=== PATIENT | female | born 1985 | race African-American/Black ===

== ENCOUNTER 2017-02-25 17:45 | Emergency (ER) | payer SELFPAY ==
[~2017-02-25] VITALS: Ht 157.5 cm; Wt 63.7 kg
[2017-02-25 17:59] VITALS: BP 106/66
--- NOTE | 2017-02-25 19:23 | NUR ---
PT. AMBULATES TO ER BED 12
[2017-02-25] MEDS ORDERED: HYDROcodone/APAP 5/325 MG 1 TAB TAB PO ONE (19:45)
--- NOTE | 2017-02-25 19:46 | NUR ---
32Y/F PT. PRESENTS TO ED WITH C/O LT. WRIST PAIN X 1 DAY. PT. ROLLED OUT OF BED, LT. WRIST PAIN. NO MEDICAL HX. AAO X4, AMBULATORY WITH STEDAY GAIT. NO APPARENT INJURY. C/O LT. WRIST PAIN 11/22. VSS, ER UPHOLSTERY BUNDLER MADE AWARE OF PT. STATUS.
--- NOTE | 2017-02-25 20:40 | NUR ---
Patient discharged with v/s stable. Written and verbal after care instructions given and explained. Patient alert, oriented and verbalized understanding of instructions. Ambulatory with steady gait. All questions addressed prior to discharge. ID band removed. Patient advised to follow up with PMD. Rx of MOTRIN 800 MG, NORCO 5/325 MG given. Patient educated on indication of medication including possible reaction and side effects. Opportunity to ask questions provided and answered.
[2017-02-25 20:59] VITALS: BP 101/63
== END 2017-02-25 20:40 | disposition home or self-care (01) ==
LOC: MED 17:45
DX: S69.92XA Unspecified injury of left wrist, hand and finger(s), initial encounter (principal); W06.XXXA Fall from bed, initial encounter; Y93.89 Activity, other specified; Y92.89 Other specified places as the place of occurrence of the external cause; Y99.8 Other external cause status
CPT/HCPCS: 73110; 99284

== ENCOUNTER 2017-04-04 14:24 | Emergency (ER) | payer SELFPAY ==
[~2017-04-04] VITALS: Ht 157.5 cm; Wt 63.2 kg
[2017-04-04 14:29] VITALS: BP 109/76
--- NOTE | 2017-04-04 14:33 | NUR ---
PT AA&OX4, STEADY GAIT; VSS; PT PLACED IN LOBBY AWAITING OPEN BED.
--- NOTE | 2017-04-04 16:18 | NUR ---
PATIENT LEFT WITHOUT BEING SEEN BY DR. BELL. NO FURTHER CARE PROVIDED FOR PATIENT.
== END 2017-04-04 16:18 | disposition left against medical advice (07) ==
LOC: MED 14:24
DX: Z53.21 Procedure and treatment not carried out due to patient leaving prior to being seen by health care provider (principal)

== ENCOUNTER 2018-06-08 12:01 | Emergency (ER) | payer MEDICAID ==
[~2018-06-08] VITALS: Ht 157.5 cm; Wt 76.8 kg
[2018-06-08 12:10] VITALS: BP 108/64
--- NOTE | 2018-06-08 13:37 | NUR ---
PT SITTING IN LOBBY W/ VSS. NO NEW COMPLAINTS AT THIS TIME
--- NOTE | 2018-06-08 14:38 | NUR ---
Kary martinez in EDM - 06/08/18 at 1527 by [email or web address] PT SPOKE WITH ER ADMITTING STAFF AT THIS TIME. LWBS. ATTEMPTED TO TALK TO PT AGAIN AT THIS TIME BUT LEFT UNIT.
--- NOTE | 2018-06-08 14:54 | NUR ---
Note michelle in EDM - 06/08/18 at 1504 by [email or web address] 33 YO F BIB SELF W/ C/O PRODUCTIVE COUG X 4-5 DAYS. PT STATES THAT SHE NOW HAS CHEST WALL PAIN FROM COUGHING. LUNGS BL CLEAR. RR EVEN AND UNLABORED. NO MEDICATIONS TAKEN TODAY, STATES ROBITUSSIN AND TYLENOL HAVE NOT BEEN EFFECTIVE IN RELIEVING SYMTPOMS. HX DENIES RX DENIES
--- NOTE | 2018-06-08 14:54 | NUR ---
PT AMBULATED TO BED 9
--- NOTE | 2018-06-08 15:17 | NUR ---
DR. DOHERTY AT BEDSIDE EVALUATING.
[2018-06-08] MEDS ORDERED: cefTRIAXone 1,000 MG in LIDOCAINE 1% ***ER ONLY *** 2.1 ML IM ONE (15:25)
[2018-06-08] MEDS ORDERED: KETOROLAC 60 MG/2 ML VIAL IM ONE (15:25)
[2018-06-08] MEDS ORDERED: DEXAMETHASONE 10 MG/ML VIAL IM ONE (15:25)
[2018-06-08] MEDS ORDERED: ALBUTEROL SULFATE/IPRATROPIU 3 ML SOL IH ONE (15:25)
[2018-06-08] MEDS ORDERED: hydrOXYzine HCL 25 MG TAB PO ONE (15:25)
[2018-06-08] MEDS ORDERED: cefTRIAXone 1,000 MG VIAL ONE (15:44)
[2018-06-08] MEDS ORDERED: LIDOCAINE MPF 1% 5mL VIAL ONE (15:47)
[2018-06-08 16:28] LABS: APPEARANCE,URINE CLEAR (CLEAR); BILIRUBIN,URINE NEGATIVE (NEGATIVE); BLOOD, URINE NEGATIVE (NEGATIVE); COLOR,URINE YELLOW (YELLOW); LEUKOCYTE ESTERASE ,URINE NEGATIVE (NEGATIVE); NITRITE, URINE NEGATIVE (NEGATIVE); PH,URINE 6.5 (5.0-9.0); UGLUCOSE NEGATIVE (NEGATIVE)
--- NOTE | 2018-06-08 16:44 | NUR ---
MOTHER RESTING IN BED. NO S/S OF DISTRESS NOTED. SEEN SMILING AND LAUGHING WITH CHILD
[2018-06-08 16:59] LABS: BARBITURATE, URINE NEG. ng/ml (NEG <=200); BENZODIAZEPINE, URINE NEG. ng/mL (NEG <=200); CANNABINOID, URINE POS. ng/mL (NEG <=50); COCAINE, URINE NEG. ng/mL (NEG <=300); OPIATE, URINE NEG. ng/mL (NEG <=2000); PHENCYCLIDINE SCREEN,URINE NEG. ng/mL (NEG <=25)
[2018-06-08 17:18] VITALS: BP 110/69
--- NOTE | 2018-06-08 17:19 | NUR ---
Patient discharged with v/s stable. Written and verbal after care instructions given and explained. Patient alert, oriented and verbalized understanding of instructions. Ambulatory with steady gait. All questions addressed prior to discharge. ID band removed. Patient advised to follow up with PMD. Rx of AZITHROMYCIN, PROMETHAZINE, ALBUTEROL given. Patient educated on indication of medication including possible reaction and side effects. Opportunity to ask questions provided and answered.
== END 2018-06-08 17:19 | disposition home or self-care (01) ==
LOC: MED 12:01
DX: J44.1 Chronic obstructive pulmonary disease with (acute) exacerbation (principal); F17.210 Nicotine dependence, cigarettes, uncomplicated; Z71.6 Tobacco abuse counseling
CPT/HCPCS: 36415; 71045; 80305; 81003; 81025; 87804; 93005; 94640; 96372; 99284; J0696; J1100; J1885; J2001; J7620; Q0092

== ENCOUNTER 2019-04-25 23:08 | Emergency (ER) | payer MEDICAID ==
[~2019-04-25] VITALS: Ht 157.5 cm; Wt 67.2 kg
[2019-04-25 23:10] VITALS: BP 100/62
--- NOTE | 2019-04-25 23:10 | NUR ---
TO BED # 10 AMBULATORY
--- NOTE | 2019-04-25 23:10 | NUR ---
34 y/o female presents to ED with C/O n/v/d, gen body aches, head ache, and fever x12 hrs. Took ibuprofen at home for pain and fever with relief. Pt states difficuly keeping fluids down. Afebrile with VSS. ER MD aware. Positioned in bed for comfort. Continue to monitor.
--- NOTE | 2019-04-26 00:04 | NUR ---
DR. SPEEDY BHATIA AT BEDSIDE.
[2019-04-26] MEDS ORDERED: KETOROLAC 60 MG/2 ML VIAL IM ONE (00:10)
--- NOTE | 2019-04-26 00:16 | NUR ---
MEDICATED WITH 60 MG IM TORADOL FOR 8/10 BODY ACHES. WILL REASSESS.
[2019-04-26 01:05] VITALS: BP 113/77
--- NOTE | 2019-04-26 01:05 | NUR ---
Patient discharged with v/s stable. States 2/10 tollerable pain. Written and verbal after care instructions given and explained. Patient alert, oriented and verbalized understanding of instructions. Ambulatory with steady gait. All questions addressed prior to discharge. ID band removed. Patient advised to follow up with PMD and when to return to ER. Rx of Zofran, Tamiflu, Motrin, and [place] given. Patient educated on indication of medication including possible reaction and side effects. Opportunity to ask questions provided and answered.
== END 2019-04-26 01:05 | disposition home or self-care (01) ==
LOC: MED 23:08
DX: R11.2 Nausea with vomiting, unspecified (principal); M79.10 Myalgia, unspecified site; F17.200 Nicotine dependence, unspecified, uncomplicated; Z98.890 Other specified postprocedural states
CPT/HCPCS: 81002; 81025; 96372; 99283; J1885

== ENCOUNTER 2019-04-30 06:34 | Emergency (ER) | payer MEDICAID ==
[~2019-04-30] VITALS: Ht 154.9 cm; Wt 67.1 kg
[2019-04-30 06:40] VITALS: BP 105/68
--- NOTE | 2019-04-30 06:40 | NUR ---
to bed # 09 ambulatory
--- NOTE | 2019-04-30 07:29 | NUR ---
BIB SELF C/O N/V/D, BODY ACHES, CHILLS, FEVER X 5 DAYS GRADUAL ONSET OF SYMPTOMS, LAST EMESIS WAS THIS MORNING, LAST EPISODE OF DIARRHEA WAS YESTERDAY. PATIENT UNABLE TO KEEP FLUID AND FOODS DOWN. C/O BODY ACHES/ HEADACHES X 5 DAYS, PAIN RATED 8/10. BOWEL SOUNDS NORMOACTIVE IN ALL QUADRANTS. CAP REFILL <3. NO PMH NKA
--- NOTE | 2019-04-30 07:37 | NUR ---
Patient discharged with v/s stable. Written and verbal after care instructions given and explained. Patient alert, oriented and verbalized understanding of instructions. Ambulatory with steady gait. All questions addressed prior to discharge. ID band removed. Patient advised to follow up with PMD. Rx of AZITHROMYCIN 250 MG, ZOFRAN 4 MG given. Patient educated on indication of medication including possible reaction and side effects. Opportunity to ask questions provided and answered.
[2019-04-30 07:38] VITALS: BP 102/63
== END 2019-04-30 07:37 | disposition home or self-care (01) ==
LOC: MED 06:34
DX: J06.9 Acute upper respiratory infection, unspecified (principal); R19.7 Diarrhea, unspecified
CPT/HCPCS: 99283

== ENCOUNTER 2019-06-20 01:03 | Emergency (ER) | payer BC, MEDICAID ==
[~2019-06-20] VITALS: Ht 157.5 cm; Wt 59.0 kg
[2019-06-20 01:15] VITALS: BP 110/64
--- NOTE | 2019-06-20 01:15 | NUR ---
TO BED # 03 AMBULATORY
--- NOTE | 2019-06-20 01:23 | NUR ---
34 Y/O, F, PRESENTS TO ED WITH COMPLAINTS OF COUGH, RUNNY NOSE, SCRATCHY/SORE THROAT AND PAIN ASSOC. W/ HEADACHE 7/10, FOR 2 DAYS. REPORTS PRODUCTIVE COUGH-GREEN SECRETIONS. DENIES N/V/D/C. ADMITS TO SMOKING-6 CIGARETTES/DAY. NO PAST MEDICAL HX, NKA, DENIES RECENT TRAVEL OR CONTACT WITH ANYONE W/ RECENT TRAVEL AND DID NOT RECEIVE FLU VACCINE THIS SEASON. REPORTS DAUGHTER IS ALSO SICK. SIDERAILS UP x1, PT ANOx4. IN STABLE CONDITION, ABLE TO MAKE FULL SENTENCE WITHOUT RESP. DISTRESS, LUNG SOUNDS CLEAR TO LEFT SIDE AND DIMINISHED ON RIGHT SIDE. WILL CONTINUE TO MONITOR.
--- NOTE | 2019-06-20 01:58 | NUR ---
Patient discharged with v/s stable. Written and verbal after care instructions given and explained. Patient alert, oriented and verbalized understanding of instructions. Ambulatory with steady gait. All questions addressed prior to discharge. ID band removed. Patient advised to follow up with PMD. Rx of TESSALON AND AUGMENTIN given. Patient educated on indication of medication including possible reaction and side effects. Opportunity to ask questions provided and answered.
== END 2019-06-20 01:58 | disposition home or self-care (01) ==
LOC: MED 01:03
DX: J20.9 Acute bronchitis, unspecified (principal); F17.210 Nicotine dependence, cigarettes, uncomplicated; Z98.890 Other specified postprocedural states; Z71.6 Tobacco abuse counseling
CPT/HCPCS: 99283

== ENCOUNTER 2020-03-29 07:16 | Emergency (ER) | payer BC ==
[~2020-03-29] VITALS: Ht 157.5 cm; Wt 64.5 kg
[2020-03-29 07:27] VITALS: BP 97/59
--- NOTE | 2020-03-29 07:38 | NUR ---
35/F BIB SELF C/O INTERMITENT MID ABDOMINAL PAIN, NAUSEA X X 2 WEEKS. 4 MONTHS. LMP9/. DENIES DYSURIA.PMH: 2 C SECTIONS.ABD SOFT. SKIN IS PINK/WARM/DRY; AAOX4 WITH EVEN AND STEADY GAIT; LUNGS CLEAR BL; HR EVEN AND REGULAR; PT DENIES ANY FEVER, CP, SOB, OR COUGH AT THIS TIME; PATIENT STATES PAIN OF 9/10 AT THIS TIME.
--- NOTE | 2020-03-29 07:59 | NUR ---
Patient being evaluated by DR CRAMER at [facility].
--- NOTE | 2020-03-29 08:18 | NUR ---
Patient being reevaluated by DR CRAMER at [facility].
[2020-03-29 08:40] LABS: BASOPHILS # (AUTO) 0.1 K/uL (0.00-0.22); BASOPHILS % (AUTO) 0.8 % (0.0-2.0); EOSINOPHILS # (AUTO) 0.1 K/uL (0-0.4); EOSINOPHILS % (AUTO) 0.8 % (0.0-4.0); HEMATOCRIT 36.1 % (36-48); LYMPHOCYTES # (AUTO) 2.5 K/uL (2.5-16.5); LYMPHOCYTES % (AUTO) 32.5 % (20.5-51.1); MEAN CORPUSCULAR HEMOGLOBIN 29 pg (27-31); MEAN CORPUSCULAR HGB CONC 33 g/dL (33-37); MEAN CORPUSCULAR VOLUME 86.6 fL (80-94); MONOCYTES # (AUTO) 0.6 K/uL (0.8-1.0); MONOCYTES % (AUTO) 7.5 % (1.7-9.3); NEUTROPHILS # (AUTO) 4.6 K/uL (1.8-7.7); NEUTROPHILS % (AUTO) 58.4 % (42.2-75.2); PLATELET COUNT (AUTO) 205 K/uL (140-450); RED BLOOD CELL COUNT(AUTO) 4.17 MIL/uL (4.20-5.40); RED CELL DISTRIBUTION WIDTH 13.4 % (11.6-13.7); WHITE BLOOD COUNT (AUTO) 7.9 K/uL (4.8-10.8)
[2020-03-29 09:06] LABS: ALBUMIN 3.6 g/dL (3.4-5.0); ANION GAP 15.2 (8-16); CARBON DIOXIDE 21.5 mmol/L (21-32); CREATININE 0.6 mg/dL (0.6-1.3); POTASSIUM 3.7 mmol/L (3.5-5.1); TOTAL BILIRUBIN 0.3 mg/dL (0.0-1.0)
[2020-03-29 09:27] VITALS: BP 106/63
--- NOTE | 2020-03-29 09:27 | NUR ---
Patient discharged with v/s stable. Written and verbal after care instructions given and explained. Patient verbalized understanding. Ambulatory with steady gait. All questions addressed prior to discharge. Advised to follow up with PMD.
== END 2020-03-29 09:27 | disposition home or self-care (01) ==
LOC: MED 07:16
DX: O21.8 Other vomiting complicating pregnancy (principal); O26.891 Other specified pregnancy related conditions, first trimester; R10.9 Unspecified abdominal pain; Z3A.16 16 weeks gestation of pregnancy; Z98.890 Other specified postprocedural states
CPT/HCPCS: 36415; 76801; 80053; 81002; 81025; 83690; 85025; 99284

== ENCOUNTER 2021-02-11 21:53 | Emergency (ER) | payer BC ==
[~2021-02-11] VITALS: Ht 157.5 cm; Wt 82.1 kg
[2021-02-11 22:06] VITALS: BP 109/75
--- NOTE | 2021-02-11 22:14 | NUR ---
PT TAKEN TO BED 10
--- NOTE | 2021-02-11 22:15 | NUR ---
PT SITTING ON [employer] C/O OF LOST OF TASTE AND SMELL FOR "4 DAYS OR A COUPLE DAYS BUT ITS COMING BACK NOW." ALSO C/O OF BACK PAIN FOR 4 DAYS. DENIES MED HX OR ANY OTHER C/O AT THIS TIME.
--- NOTE | 2021-02-11 22:52 | NUR ---
Dr. Dacosta examining patient.
--- NOTE | 2021-02-11 23:20 | NUR ---
BOBBY OBTAINED, WALKED TO LAB, SIGNED INTO LOG BOOK AND HANDED TO PHLEB
--- NOTE | 2021-02-11 23:41 | NUR ---
Patient discharged with v/s stable. Written and verbal after care instructions given and explained. Patient alert, oriented and verbalized understanding of instructions. Ambulatory with steady gait. All questions addressed prior to discharge. ID band removed. Patient advised to follow up with PMD. Patient educated on indication of medication including possible reaction and side effects. Opportunity to ask questions provided and answered.
[2021-02-11] MEDS ORDERED: IBUPROFEN 600 MG TAB ONE (23:45)
== END 2021-02-11 23:41 | disposition home or self-care (01) ==
LOC: MED 21:53
DX: U07.1 COVID-19 (principal); F17.210 Nicotine dependence, cigarettes, uncomplicated; Z98.890 Other specified postprocedural states
CPT/HCPCS: 99283